=== PATIENT | female | born 1990 | race Caucasian/White ===

== ENCOUNTER 2021-11-30 23:51 | Emergency (ER) | payer OTHER ==
[~2021-11-30] VITALS: Ht 165.1 cm; Wt 112.4 kg
[2021-12-01] MEDS ORDERED: ALBU2.5V10 INH (00:26)
[2021-12-01] MEDS ORDERED: ALBU8.5H INH (00:26)
[2021-12-01] MEDS ORDERED: KEPP10002 PO (00:26)
[2021-12-01] MEDS ORDERED: ADV250INH INH (00:26)
[2021-12-01] MEDS ORDERED: FOLI1TAB11 PO (00:26)
[2021-12-01] MEDS ORDERED: ALBUTEROL 90 MCG/ACT 8GM HFA INHALER INH ONE (01:35)
[2021-12-01] MEDS ORDERED: BENZONATATE 100MG CAPSULE PO ONE (01:45)
[2021-12-01] MEDS ORDERED: predniSONE 20 MG TAB PO ONE (01:45)
[2021-12-01] MEDS ORDERED: AUGMENTIN 875 MG TAB PO ONE (02:00)
[2021-12-01] MEDS ORDERED: BENZ200C70 PO (02:03)
[2021-12-01] MEDS ORDERED: AMOX875T2 PO (02:03)
[2021-12-01] MEDS ORDERED: PRED20TA PO (02:03)
[2021-12-01 02:10] LABS: BASO # 0.1 10^3/uL (0.0-0.2); BASO % 0.6 % (0.0-1.0); EOS # 0.2 10^3/uL (0.0-0.5); EOS % 2.7 % (0.0-3.0); HEMATOCRIT 34.3 % (36.0-47.0); HEMOGLOBIN 11.7 g/dl (12.0-15.5); LYMPH % 33.2 % (24.0-44.0); MEAN CORPUSCULAR HEMOGLOBIN 29.2 pg (27.0-33.0); MEAN CORPUSCULAR HGB CONC 34.1 g/dl (32.0-36.5); MEAN CORPUSCULAR VOLUME 85.5 fl (80.0-96.0); MONO # 0.7 10^3/uL (0.0-0.8); MONO % 7.6 % (2.0-8.0); PLATELET COUNT, AUTOMATED 255 10^3/uL (150-450); RED BLOOD COUNT 4.01 10^6/uL (4.00-5.40)
[2021-12-01 02:44] LABS: BLOOD UREA NITROGEN 4 MG/DL (7-18); CALCIUM LEVEL 8.5 MG/DL (8.5-10.1); CARBON DIOXIDE LEVEL 23 MEQ/L (21-32); CHLORIDE LEVEL 107 MEQ/L (98-107); CREATININE FOR GFR 0.47 MG/DL (0.55-1.30); GLOMERULAR FILTRATION RATE > 60.0 (>60); GLUCOSE, FASTING 93 MG/DL (70-100); POTASSIUM SERUM 3.5 MEQ/L (3.5-5.1); SODIUM LEVEL 137 MEQ/L (136-145)
[2021-12-01 03:15] VITALS: BP 154/93
== END 2021-12-01 03:49 | disposition home or self-care (01) ==
LOC: M ED 23:51
DX: J20.9 Acute bronchitis, unspecified (principal); B34.8 Other viral infections of unspecified site; R50.9 Fever, unspecified; Z91.040 Latex allergy status; Z79.899 Other long term (current) drug therapy
CPT/HCPCS: 36415; 80048; 85025; 87486; 87581; 87633; 87798; 94640; 99284; J7512

== ENCOUNTER → 2022-02-18 | Outpatient (CLI) | payer OTHER ==
[~2022-02-18] MED LIST: ADV250INH INH; ALBU2.5V10 INH; ALBU8.5H INH; AMOX875T2 PO; BENZ200C70 PO; FOLI1TAB11 PO; KEPP10002 PO; PRED20TA PO
[2022-02-18 16:46] LABS: ALBUMIN 2.6 GM/DL (3.2-5.2); ALT/SGPT 21 U/L (12-78); BILIRUBIN,TOTAL 0.2 MG/DL (0.2-1.0); BLOOD UREA NITROGEN 4 MG/DL (7-18); CALCIUM LEVEL 9.1 MG/DL (8.5-10.1); CARBON DIOXIDE LEVEL 24 MEQ/L (21-32); CHLORIDE LEVEL 106 MEQ/L (98-107); CREATININE FOR GFR 0.49 MG/DL (0.55-1.30); GLOMERULAR FILTRATION RATE > 60.0 (>60); GLUCOSE, FASTING 118 MG/DL (70-100); LDH LACTATE DEHYDROGENASE 149 U/L (84-246); POTASSIUM SERUM 3.5 MEQ/L (3.5-5.1); SODIUM LEVEL 136 MEQ/L (136-145); TOTAL PROTEIN 6.1 GM/DL (6.4-8.2); URIC ACID 4.3 MG/DL (2.6-6.0)
== END ==
LOC: M LAB 15:04
PROVIDERS: ATTEND Obstetrics & Gynecology
DX: Z34.90 Encounter for supervision of normal pregnancy, unspecified, unspecified trimester (principal); Z3A.00 Weeks of gestation of pregnancy not specified

== ENCOUNTER 2022-03-23 13:30 | Outpatient (CLI) | payer OTHER ==
[~2022-03-23] VITALS: Ht 167.6 cm; Wt 115.1 kg
[2022-03-23] MEDS ORDERED: PRENTAB9 PO (14:02)
[2022-03-23] MEDS ORDERED: ACET325C5 PO (14:02)
[2022-03-23] MEDS ORDERED: HOME MED LIST COMPLETE! XX SCH (14:05)
[2022-03-23 14:07] VITALS: BP 172/95
[2022-03-23 14:08] VITALS: BP 132/82
[2022-03-23 15:19] VITALS: BP 139/96
[2022-03-23 15:20] VITALS: BP 139/83
[2022-03-23 15:35] LABS: APPEARANCE, URINE MANUAL CLEAR (CLEAR); BILIRUBIN, URINE MANUAL NEGATIVE (NEGATIVE); BLOOD URINE MANUAL NEGATIVE (NEGATIVE); COLOR, URINE MANUAL LT YELLOW (YELLOW); GLUCOSE, URINE (UA) MANUAL NEGATIVE (NEGATIVE); KETONE, URINE MANUAL NEGATIVE (NEGATIVE); LEUKOCYTE ESTERASE, URINE MAN NEGATIVE (NEGATIVE); NITRITE, URINE MANUAL NEGATIVE (NEGATIVE); PROTEIN, URINE MANUAL NEGATIVE (NEGATIVE); SPECIFIC GRAVITY,URINE MANUAL 1.005 (1.002-1.035); UROBILINOGEN, URINE MANUAL NORMAL (NORMAL)
[2022-03-23 16:42] LABS: HEMATOCRIT 30.9 % (36.0-47.0); HEMOGLOBIN 9.9 g/dl (12.0-15.5); MEAN CORPUSCULAR HEMOGLOBIN 27.7 pg (27.0-33.0); MEAN CORPUSCULAR VOLUME 86.6 fl (80.0-96.0); PLATELET COUNT, AUTOMATED 298 10^3/uL (150-450); RED BLOOD COUNT 3.57 10^6/uL (4.00-5.40); WHITE BLOOD COUNT 10.2 10^3/uL (4.0-10.0)
[2022-03-23 17:14] LABS: ALBUMIN 2.6 GM/DL (3.2-5.2); ALT/SGPT 24 U/L (12-78); BILIRUBIN,DIRECT < 0.1 MG/DL (0.0-0.2); BILIRUBIN,TOTAL 0.2 MG/DL (0.2-1.0); TOTAL PROTEIN 6.4 GM/DL (6.4-8.2)
[2022-03-23 17:23] LABS: CREATININE,RANDOM URINE 25.4 MG/DL; TOTAL PROTEIN,RANDOM URINE 5.3 MG/DL (0.0-12.0)
== END 2022-03-23 16:10 | disposition home or self-care (01) ==
LOC: M LDO 13:30
PROVIDERS: ATTEND Registered Nurse
DX: O47.03 False labor before 37 completed weeks of gestation, third trimester (principal); Z3A.31 31 weeks gestation of pregnancy; Z86.16 Personal history of COVID-19; O26.893 Other specified pregnancy related conditions, third trimester; M54.32 Sciatica, left side; M54.31 Sciatica, right side; Z91.040 Latex allergy status
CPT/HCPCS: 36415; 59025; 80076; 81002; 82570; 84156; 85027; 87086; G0378; G0463

== ENCOUNTER → 2022-03-30 | Outpatient (REF) | payer OTHER ==
[~2022-03-30] MED LIST changes: +ACET325C5 PO; +PRENTAB9 PO
[2022-03-30 15:21] LABS: TOTAL PROTEIN 24 HOUR URINE 129.4 MG/24HR (50-150); URINE TOTAL PROTEIN 22.5 MG/DL (0-12)
== END ==
LOC: M LAB REF 13:30
PROVIDERS: ATTEND Registered Nurse
DX: O99.893 Other specified diseases and conditions complicating puerperium (principal); Z3A.00 Weeks of gestation of pregnancy not specified

== ENCOUNTER 2022-04-03 21:08 | Outpatient (CLI) | payer OTHER ==
[~2022-04-03] VITALS: Ht 165.1 cm; Wt 115.1 kg
[2022-04-03 21:27] VITALS: BP 136/83
[2022-04-03] MEDS ORDERED: HOME MED LIST COMPLETE! XX SCH (21:30)
[2022-04-03 22:35] VITALS: BP 133/83
== END 2022-04-03 22:40 | disposition home or self-care (01) ==
LOC: M LDO 21:08
PROVIDERS: ATTEND Obstetrics & Gynecology
DX: O47.03 False labor before 37 completed weeks of gestation, third trimester (principal); Z3A.32 32 weeks gestation of pregnancy; Z91.040 Latex allergy status

== ENCOUNTER 2022-04-16 18:17 | Outpatient (CLI) | payer OTHER ==
[~2022-04-16] VITALS: Ht 167.6 cm; Wt 114.6 kg
[2022-04-16 18:39] VITALS: BP 139/85
[2022-04-16] MEDS ORDERED: HOME MED LIST COMPLETE! XX SCH (18:45)
[2022-04-16 19:37] LABS: HEMATOCRIT 32.1 % (36.0-47.0); HEMOGLOBIN 10.5 g/dl (12.0-15.5); MEAN CORPUSCULAR HEMOGLOBIN 27.2 pg (27.0-33.0); MEAN CORPUSCULAR HGB CONC 32.7 g/dl (32.0-36.5); MEAN CORPUSCULAR VOLUME 83.2 fl (80.0-96.0); PLATELET COUNT, AUTOMATED 283 10^3/uL (150-450); RED BLOOD COUNT 3.86 10^6/uL (4.00-5.40); WHITE BLOOD COUNT 10.3 10^3/uL (4.0-10.0)
[2022-04-16] MEDS ORDERED: LR 1,000 ML IV ONE ×2 (19:40)
[2022-04-16 20:17] VITALS: BP 137/85
[2022-04-16 20:29] LABS: HEMOGLOBIN A1c 5.7 %
== END 2022-04-16 20:15 | disposition home or self-care (01) ==
LOC: M LDO 18:17
PROVIDERS: ATTEND Advanced Practice Midwife
DX: O26.893 Other specified pregnancy related conditions, third trimester (principal); R10.2 Pelvic and perineal pain; R10.11 Right upper quadrant pain; Z3A.34 34 weeks gestation of pregnancy; O99.353 Diseases of the nervous system complicating pregnancy, third trimester; G40.909 Epilepsy, unspecified, not intractable, without status epilepticus; O99.513 Diseases of the respiratory system complicating pregnancy, third trimester; J45.909 Unspecified asthma, uncomplicated; O99.283 Endocrine, nutritional and metabolic diseases complicating pregnancy, third trimester; E86.0 Dehydration; O24.410 Gestational diabetes mellitus in pregnancy, diet controlled; Z91.040 Latex allergy status
CPT/HCPCS: 59025; 81000; 81015; 83036; 85027; 87086; G0463

== ENCOUNTER 2022-05-04 17:50 | Inpatient (IN) | payer OTHER ==
[~2022-05-04] VITALS: Ht 167.6 cm; Wt 115.4 kg
[2022-05-04] VITALS (15 sets, daily range): BP systolic 113–141; BP diastolic 58–86
[2022-05-04 19:04] LABS: HEMOGLOBIN 10.2 g/dl (12.0-15.5); MEAN CORPUSCULAR HGB CONC 32.9 g/dl (32.0-36.5); PLATELET COUNT, AUTOMATED 269 10^3/uL (150-450); RED BLOOD COUNT 3.78 10^6/uL (4.00-5.40); WHITE BLOOD COUNT 8.8 10^3/uL (4.0-10.0)
[2022-05-04] MEDS ORDERED: LACTATED RINGER'S 1000 ML IV STA (20:01)
[2022-05-04] MEDS ORDERED: LIDOCAINE 1% MDV 20ML VIAL INFIL PRN (20:05)
[2022-05-04] MEDS ORDERED: METHYLERGONOVINE MALEATE 0.2 MG/ML VIAL (J2210) IM PRN (20:05)
[2022-05-04] MEDS ORDERED: INSULIN REGULAR IN 0.9 % NACL 100 UNIT in IV 1 EA IV SCH ×2 (20:05)
[2022-05-04] MEDS ORDERED: CARBOPROST TROMETHAMINE 250 MCG/ML AMP IM PRN (20:05)
[2022-05-04] MEDS ORDERED: TRANEXAMIC ACID INJection 1,000 MG in NS 100 ML IV PRN (20:05)
[2022-05-04] MEDS ORDERED: OXYTOCIN INJ 10 UNITS/ML VIAL (J2590) IV PRN (20:05)
[2022-05-04] MEDS ORDERED: INSULIN IV RATE CHANGE DOCUMENTATION ML/HR XX SCH (20:05)
[2022-05-04] MEDS ORDERED: OXYTOCIN INJ 10 UNITS/ML VIAL (J2590) IM PRN (20:05)
[2022-05-04] MEDS ORDERED: LR 1,000 ML IV SCH (20:05)
[2022-05-04] MEDS ORDERED: OXYTOCIN DRIP 30 UNITS in IV 1 EA IV SCH (20:05)
[2022-05-04] MEDS ORDERED: OXYTOCIN DRIP 30 UNITS in IV 1 EA IV PRN ×6 (20:05)
[2022-05-04] MEDS ORDERED: GLUCOSE 4GM CHEW TABLET PO PRN (20:40)
[2022-05-04] MEDS ORDERED: DEXTROSE 50% 50 ML SYRINGE IV PRN (20:40)
[2022-05-04] MEDS ORDERED: GLUCAGON INJ 1MG VIAL SC PRN (20:40)
[2022-05-04] MEDS ORDERED: INSULIN LISPRO (NovoLOG) PER UNIT SC PRN (20:50)
[2022-05-04] MEDS ORDERED: INSULIN LISPRO (NovoLOG) PER UNIT SC SCH (21:00)
[2022-05-04] MEDS: INSULIN LISPRO (NovoLOG) PER UNIT SC SCH ×2 (21:00→23:00)
[2022-05-04] MEDS: LR 1,000 ML IV SCH (21:20)
[2022-05-04] MEDS ORDERED: EPIDURAL/PCA KEYS XX PRN (23:10)
[2022-05-04] MEDS ORDERED: NALOXONE INJ 0.4MG/1ML VIAL (J2310 PER 1MG) IV PRN (23:10)
[2022-05-04] MEDS ORDERED: LR 500 ML IV PRN (23:10)
[2022-05-04] MEDS ORDERED: ePHEDrine SULFATE 25 MG/5 ML(5MG/ML) SYRINGE IVP PRN (23:10)
[2022-05-04] MEDS ORDERED: ONDANSETRON 4MG 2ML VIAL IV PRN (23:10)
[2022-05-04] MEDS ORDERED: FENTANYL 2MCG/ML ROPIVACAINE 0.2% IN 0.9% NACL 100ML IVBAG As Ordered ONE (23:11)
[2022-05-04] MEDS: FENTANYL/ROPIVACAINE/NACL BAG 100 ML EPIDURAL SCH (23:43)
[2022-05-05] VITALS (40 sets, daily range): BP systolic 82–150; BP diastolic 45–84
[2022-05-05] MEDS: LR 1,000 ML IV SCH ×2 (00:35→06:06)
[2022-05-05] MEDS: INSULIN LISPRO (NovoLOG) PER UNIT SC SCH ×3 (01:00→05:00)
[2022-05-05] MEDS: diphenhydrAMINE 50MG/ML VIAL IV PRN ×2 (05:27→09:32)
[2022-05-05] MEDS ORDERED: INSULIN LISPRO (NovoLOG) PER UNIT SC SCH (07:30)
[2022-05-05] MEDS: FENTANYL/ROPIVACAINE/NACL BAG 100 ML EPIDURAL SCH (08:01)
[2022-05-05] MEDS: PRENATAL VITAMINS CHEWABLE TABLET PO SCH (09:00)
[2022-05-05 10:40] LABS: CORD GAS ABE V -2.2; CORD GAS HCO3 V 22.7 MEQ/L; CORD GAS O2 SAT V 68.6 %; CORD GAS PCO2 V 39.4 mmHg; CORD GAS PH V 7.378 UNITS; CORD GAS PO2 V 26.3 mmHg; CORD GAS SBC V 21.9 MEQ/L; CORD GAS TCO2 V 23.9 MEQ/L
[2022-05-05] MEDS ORDERED: LR 1,000 ML IV SCH (10:40)
[2022-05-05] MEDS ORDERED: RHOGAM 300 MCG (1500 IU) INJ (J2790) IM SCH (10:40)
[2022-05-05] MEDS ORDERED: ACETAMINOPHEN TAB 650MG DOSE (2X325MG) PO PRN (10:40)
[2022-05-05] MEDS ORDERED: OXYTOCIN DRIP 30 UNITS in IV 1 EA IV SCH (10:40)
[2022-05-05] MEDS ORDERED: ACETAMINOPHEN 500 MG TAB PO PRN (10:40)
[2022-05-05] MEDS ORDERED: DIBUCAINE 1% OINTMENT 30GM TOP PRN (10:40)
[2022-05-05] MEDS ORDERED: METHYLERGONOVINE MALEATE 0.2 MG TAB PO PRN (10:40)
[2022-05-05] MEDS ORDERED: IBUPROFEN 600MG TAB PO PRN (10:40)
[2022-05-05] MEDS ORDERED: DOCUSATE SODIUM 100MG CAPSULE PO PRN (10:40)
[2022-05-05 10:43] LABS: CORD GAS ABE A -3.7; CORD GAS HCO3 A 23.2 MEQ/L; CORD GAS O2 SAT A 60.2 %; CORD GAS PCO2 A 48.5 mmHg; CORD GAS PH A 7.297 UNITS; CORD GAS PO2 A 25.1 mmHg; CORD GAS SBC A 20.5 MEQ/L; CORD GAS TCO2 A 24.7 MEQ/L
[2022-05-05] MEDS ORDERED: PREN1CHW6 PO (11:02)
[2022-05-05] MEDS ORDERED: KEPP10002 PO (11:02)
[2022-05-05] MEDS ORDERED: HOME MED LIST COMPLETE! XX SCH (11:05)
[2022-05-05] MEDS: IBUPROFEN 800 MG TAB PO PRN ×2 (11:55→20:41)
[2022-05-05] MEDS: levETIRAcetam 250MG TABLET (KEPPRA) PO SCH (21:01)
[2022-05-06] MEDS: IBUPROFEN 800 MG TAB PO PRN (05:46)
[2022-05-06 06:21] VITALS: BP 110/73
[2022-05-06] MEDS ORDERED: ACET-683 PO (07:54)
[2022-05-06] MEDS ORDERED: LIDOCAINE 1% MDV 20ML VIAL INFIL PRN (08:00)
[2022-05-06] MEDS: PRENATAL VITAMINS CHEWABLE TABLET PO SCH (09:36)
[2022-05-06] MEDS: levETIRAcetam 250MG TABLET (KEPPRA) PO SCH (09:37)
[2022-05-07] MEDS ORDERED: MEASLES,MUMPS,RUBELLA VACCINE INJ (MMR-II) (90707) SC.IMMUN ONE (09:00)
== END 2022-05-06 12:35 | disposition home or self-care (01) | DRG 806 ==
LOC: M LDI 17:50 → M OBS 05-05 13:19
PROVIDERS: ADMIT Advanced Practice Midwife; ATTEND Registered Nurse
PROC: 10E0XZZ Delivery of Products of Conception, External Approach (ICD-10-PCS; principal; 2022-05-05)
PROC: 10907ZC Drainage of Amniotic Fluid, Therapeutic from Products of Conception, Via Natural or Artificial Opening (ICD-10-PCS; 2022-05-05)
DX: O24.424 Gestational diabetes mellitus in childbirth, insulin controlled (principal); Z37.0 Single live birth; O99.354 Diseases of the nervous system complicating childbirth; Z3A.37 37 weeks gestation of pregnancy; G40.909 Epilepsy, unspecified, not intractable, without status epilepticus; F17.200 Nicotine dependence, unspecified, uncomplicated; O99.334 Smoking (tobacco) complicating childbirth; J45.909 Unspecified asthma, uncomplicated; O99.52 Diseases of the respiratory system complicating childbirth; O69.82X0 Labor and delivery complicated by other cord entanglement, without compression, not applicable or unspecified